=== PATIENT | female | born 1970 | race Caucasian/White ===

== ENCOUNTER 2019-11-22 13:58 | Outpatient (CLI) | payer OTHER ==
--- NOTE | 2019-11-22 14:59 | ULT ---
EXAM: US Thyroid STANDARD PROVIDED CLINICAL HISTORY: Thyroid nodule COMPARISON: None FINDINGS: Right lobe thyroid gland: Measurement-4.1 cm x 1.4 cm x 1.7 cm Hypoechoic circumscribed nodule superior pole right lobe thyroid gland measuring 0.5 cm Hypoechoic circumscribe nodule midportion right lobe of thyroid gland measuring 0.7 cm Left lobe thyroid gland: Measurement-5.6 cm x 3.8 cm x 2.5 cm Complex cystic and solid nodule midportion left lobe of the thyroid gland with cystic area predominan tly centrally with peripheral lobulated hypoechoic area. Echogenic foci are seen suggesting calcifications. This nodule measures 3.6 cm x 2.3 cm x 2.3 cm. No additional nodule is seen in the left lobe of thyroid gland. Thyroid isthmus: Measurement-0.3 cm in AP dimension IMPRESSION: 1. TI RADS level 4 complex cystic and solid nodule left lobe of the thyroid gland. Fine-needle aspira tion is recommended according to ACR guidelines and size criteria. 2. TI RADS level 4 nodules right lobe of thyroid gland. Based on size criteria, no additional follow- up is warranted.
== END 2019-11-22 13:59 | disposition home or self-care (01) ==
LOC: SCSULT 13:58
PROVIDERS: ATTEND Internal Medicine Endocrinology, Diabetes & Metabolism
DX: E04.2 Nontoxic multinodular goiter (principal)
CPT/HCPCS: 76536